=== PATIENT | male | born 1950 | race Hispanic/Latino ===

== ENCOUNTER 2018-01-02 18:26 | Emergency (ER) | payer OTHER ==
--- NOTE | 2018-01-02 19:00 | RAD ---
CHEST ONE VIEW: HISTORY: A 67-year-old male with a history of chest pain, lower sternal chest pain since last night. FINDINGS: Monitor leads overly the chest. Heart size is within normal limits. Lungs are clear. Mild biapical pleural thickening. There is some heterogeneous sclerosis involving the humeral head, not completel y visualized and not fully characterized on this study. IMPRESSION: 1. No significant acute intrathoracic disease. 2. Atherosclerosis of the aorta. 3. Nonspecific mottled sclerosis of the left humeral head. POS: RRE
[2018-01-02] MEDS ORDERED: Lidocaine Viscous Sol 2% 15 ml UD Cup ONE (19:09)
[2018-01-02 19:10] LABS: #Monocytes 0.4 thou/uL (0.11-0.59); #Neutrophils 3.7 thou/uL (1.40-6.50); %Basophils 0.4 % (0.0-1.0); %Eosinophils 0.2 % (0.0-10.0); %Monocytes 6.9 % (0.0-10.0); %Neutrophils 72.4 % (42.0-75.0); Hemoglobin 8.1 g/dL (14.0-18.0); Mean Corpuscular HGB CONC 31.9 g/dL (32.0-36.0); Mean Platelet Volume 7.9 fL (7.4-10.4); Platelet Count 166 thou/uL (130-400); RBC Distribution Width 13.3 % (11.5-14.5); Red Blood Cell (RBC) Count 2.77 mill/uL (4.70-6.10); White Blood Cell (WBC) Count 5.1 thou/uL (4.8-10.8)
[2018-01-02] MEDS ORDERED: Pantoprazole 40 MG VIAL ONE (19:10)
[2018-01-02] MEDS ORDERED: Mag-Al 1200 mg/1200 mg/30 ML UDCUP ONE (19:10)
[2018-01-02 19:29] LABS: CKMB 0.4 ng/mL (0-6.6); Troponin I Less than 0.010 ng/mL (< 0.028)
[2018-01-02] MEDS ORDERED: Sucralfate 1 GM/10 ML UDCUP ONE (20:27)
--- NOTE | 2018-01-02 20:51 | CT ---
CT HEAD WITHOUT CONTRAST: INDICATIONS: Left upper extremity weakness. TECHNIQUE: Multiple axial tomograms obtained through the head without IV enhancement. FINDINGS: The ventricles have normal size and position. There is no evidence of intracranial hemorrhage or mas s. No evidence of infarct. IMPRESSION: No acute abnormality. POS: [facility]
[2018-01-02 22:19] LABS: Base Excess-Venous -5.1 mmol/L (0 (+/- 2.5)); Bicarbonate (HCO3v) 20.7 mmol/L (1.0-85.0); CO2 Tension (PvCO2) 40.8 mmHg (41.0-51.0); Calcium, Ionized 1.18 mmol/L (1.12-1.32); Hemoglobin - Calc 10.2 g/dL (12.0-18.0); Lactate 1.69 mmol/L (0.50-2.20); Potassium 4.2 mmol/L (3.4-4.7); pH (Venous) 7.314 (7.35-7.45); vO2 Saturation-calc 30.2 % (94-98)
[2018-01-02 22:58] LABS: Troponin I Less than 0.010 ng/mL (< 0.028)
== END 2018-01-02 23:03 ==
LOC: ERS 18:26
DX: R10.13 Epigastric pain (principal); D64.9 Anemia, unspecified; K21.9 Gastro-esophageal reflux disease without esophagitis; Z79.899 Other long term (current) drug therapy
CPT/HCPCS: 36415; 70450; 71045; 82330; 82435; 82553; 82565; 82803; 82947; 83605; 84132; 84295; 84484; 85025; 93005; 96374; C9113